=== PATIENT | female | born 1975 ===

== ENCOUNTER 2017-04-06 18:27 | Emergency (ER) | payer BC ==
--- NOTE | 2017-04-06 19:18 | C.PDOC ---
History Of Present Illness 42 year old female who presents to the ER with a complaint of intermittent chest pain for the past 5 days that worsens with movement. Patient denies SOB, fever, lightheadedness, or diaphoresis. Chief Complaint (Nursing): Chest Pain History Per: Patient History/Exam Limitations: no limitations Onset/Duration Of Symptoms: Days, Intermittent Episodes Current Symptoms Are (Timing): Still Present Associated Symptoms: denies: Nausea, Dyspnea, Diaphoresis Modifying Factors: None Exacerbating Factors: None Alleviating Factors: None Recent travel outside of the [place]: No Past Medical History Reviewed: Historical Data, Nursing Documentation, Vital Signs Vital Signs: Last Vital Signs Temp 98 F 04/06/17 18:39 Pulse 77 04/06/17 18:39 Resp 18 04/06/17 18:39 BP 119/79 04/06/17 18:39 Pulse Ox 100 04/06/17 19:39 - Medical History PMH: No Chronic Diseases Surgical History: No Surg Hx Family History: States: Unknown Family Hx - Social History Hx Alcohol Use: No Hx Substance Use: No - Immunization History Hx Tetanus Toxoid Vaccination: No Hx Influenza Vaccination: No Hx Pneumococcal Vaccination: No Review Of Systems Constitutional: Negative for: Fever, Chills Cardiovascular: Positive for: Chest Pain. Negative for: Palpitations Respiratory: Negative for: Cough, Shortness of Breath Gastrointestinal: Negative for: Nausea, Vomiting Neurological: Negative for: Weakness, Numbness Physical Exam - Physical Exam Appears: Non-toxic, No Acute Distress Skin: Normal Color, Warm, Dry Head: Atraumatic, Normacephalic Oral Mucosa: Moist Chest: Symmetrical, Tenderness (to substernal region with palpation) Cardiovascular: Rhythm Regular, No Murmur Respiratory: Normal Breath Sounds, No Rales, No Rhonchi, No Wheezing Gastrointestinal/Abdominal: Soft, Tenderness (Mild epigastric) Neurological/Psych: Oriented x3, Normal Speech, Normal Cognition ED Course And Treatment - Laboratory Results Result Diagrams: 04/06/17 19:37 04/06/17 19:37 ECG: Interpreted By Me, Viewed By Me ECG Rhythm: Sinus Rhythm ECG Interpretation: Normal, No Acute Changes Interpretation Of ECG: NSR, normal tracings. Rate From EC O2 Sat by Pulse Oximetry: 100 Pulse Ox Interpretation: Normal Progress Note: EKG, blood work, CXR, and urinalysis ordered. Pepcid and toradol administered. Disposition Counseled Patient/Family Regarding: Diagnosis - Disposition Referrals: [facility] [Outside] Disposition: HOME/ ROUTINE Disposition Time: 21:25 Condition: STABLE Prescriptions: Naproxen [Naprosyn Tab] 375 mg PO TIDPC #20 tab Instructions: Chest Wall Pain (ED) Forms: [facility] (Hebrew), Gen Discharge Inst Jordanian Print Language: NAMIBIAN - POA Present On Arrival: None - Clinical Impression Clinical Impression: Chest wall pain - Scribe Statement The provider has reviewed the documentation as recorded by the Scribe Garo Thayer All medical record entries made by the Scribe were at my direction and personally dictated by me. I have reviewed the chart and agree that the record accurately reflects my personal performance of the history, physical exam, medical decision making, and the department course for this patient. I have also personally directed, reviewed, and agree with the discharge instructions and disposition.
[2017-04-06 19:40] LABS: BASO % 0.4 % (0.0-2.0); EOS # 0.2 K/uL (0.0-0.7); EOS % 3.3 % (0.0-4.0); HEMOGLOBIN 12.9 g/dL (11.0-16.0); LYMPH # 1.7 K/uL (1.0-4.3); MEAN CORPUSCULAR HEMOGLOBIN 28.9 pg (27.0-31.0); MEAN CORPUSCULAR HGB CONC 34.4 g/dL (33.0-37.0); MEAN PLATELET VOLUME 9.1 fL (7.2-11.7); MONO # 0.6 K/uL (0.0-0.8); MONO % 12.5 % (0.0-10.0); NEUT # 2.6 K/uL (1.8-7.0); NEUT % 50.8 % (50.0-75.0); NRBC % 0.1 % (0.0-2.0); RBC 4.47 Mil/uL (3.80-5.20); RED CELL DISTRIBUTION WIDTH 13.2 % (11.5-14.5); WHITE BLOOD COUNT 5.2 K/uL (4.8-10.8)
[2017-04-06 19:48] LABS: ALBUMIN 3.4 g/dL (3.5-5.0)
[2017-04-06 19:51] LABS: ALB/GLOB RATIO 1.2 (1.0-2.1); ALT/SGPT 76 U/L (9-52); AST/SGOT 36 U/L (14-36); BLOOD UREA NITROGEN 11 mg/dL (7-17)
[2017-04-06 19:52] LABS: CALCIUM 7.8 mg/dl (8.6-10.4); LIPASE 189 U/L (23-300)
[2017-04-06 19:59] LABS: GFR AFRICAN-AMERICAN > 60; GFR NON-AFRICAN AMERICAN > 60
[2017-04-06 21:35] VITALS: BP 109/73; PULSE 81; RESP 16; TEMP 97.8; O2SAT 98
--- NOTE | 2017-04-07 10:05 | RAD ---
HISTORY: COMPARISON: No prior. TECHNIQUE: Chest PA and lateral FINDINGS: LINES AND TUBES: None. LUNG AND PLEURA: The lungs are well inflated and clear. There are no pleural effusions or pneumothorax. HEART AND MEDIASTINUM: The heart is not enlarged. The hilar and mediastinal contours are within normal limits. SKELETAL STRUCTURES: The bony structures are within normal limits for the patient's age. VISUALIZED UPPER ABDOMEN: Normal. OTHER FINDINGS: None. IMPRESSION: No active pulmonary disease.
--- NOTE | 2017-04-07 12:32 | CARD ---
APPROVED REPORT EKG Measurement Heart [id number] <Conclusion> Normal sinus rhythm Normal ECG
== END 2017-04-06 21:36 | disposition home or self-care (01) ==
LOC: C.ER 18:27
DX: R07.89 Other chest pain (principal)
CPT/HCPCS: 71020; 80053; 83690; 84484; 85025; 93005; 96374; 96375; 99284; J1885

== ENCOUNTER 2018-10-10 09:25 | Outpatient (CLI) | payer BC | END 2018-10-10 09:26 | disposition home or self-care (01) | LOC: C.USIC 09:25 | DX: R92.2 Inconclusive mammogram (principal) ==